=== PATIENT | male | born 1980 | race African-American/Black ===

== ENCOUNTER 2020-03-28 12:57 | Emergency (ER) | payer MEDICAID ==
[~2020-03-28] VITALS: Ht 177.8 cm; Wt 77.1 kg
[2020-03-28 13:02] VITALS: BP 138/101
[2020-03-28] MEDS ORDERED: IBUPROFEN 600 MG TAB PO ONE (13:20)
[2020-03-28] MEDS ORDERED: cefTRIAXone 500 MG in LIDOCAINE MPF 1% 1 ML IM ONE (13:50)
[2020-03-28] MEDS ORDERED: cefTRIAXone 500 MG VIAL ONE (13:53)
[2020-03-28] MEDS ORDERED: LIDOCAINE MPF 1% 5 ML ONE (13:53)
[2020-03-28] MEDS ORDERED: LIDOCAINE MPF 1% 10 MG/ML VIAL INJ STA (14:47)
[2020-03-28 15:09] VITALS: BP 125/95
== END 2020-03-28 15:09 ==
LOC: MED 12:57
DX: S62.392B Other fracture of third metacarpal bone, right hand, initial encounter for open fracture (principal); F17.200 Nicotine dependence, unspecified, uncomplicated; Z02.89 Encounter for other administrative examinations; Y35.813A Legal intervention involving manhandling, suspect injured, initial encounter; Y93.89 Activity, other specified; Y92.89 Other specified places as the place of occurrence of the external cause; Y99.8 Other external cause status
CPT/HCPCS: 29125; 73130; 99283; J2001; Q0092; J0696

== ENCOUNTER 2020-12-25 07:10 | Emergency (ER) | payer MEDICAID ==
[~2020-12-25] VITALS: Ht 175.3 cm; Wt 79.4 kg
[2020-12-25 07:13] VITALS: BP 161/125
--- NOTE | 2020-12-25 07:20 | NUR ---
40 YEAR OLD MALE PRESENTS TO ER FOR PREBOOK WITH CATIA LOPEZ. PT STATES HE HAS HISTORY OF HTN AND WOULD LIKE MEDICAL EXAMINATION BECAUSE IS NOT COMPLIANT WITH MEDICATIONS. NO SYMPTOMS PRESENTPT AOX4, BREATHING EVEN AND UNLABORED, SKIN WARM AND DRY. PMH - HTN ALLERGIES - NKA
[2020-12-25 07:32] VITALS: BP 161/125
--- NOTE | 2020-12-25 07:32 | NUR ---
Patient does not wish to proceed with medical care recommended by Dr. Santo. Patient given information related to possible complications, up to and including , which could occur as a result of leaving hospital at this time. Patient verbalizes understanding of risks involved leaving against medical advice. Patient has signed AMA form. PATIENT BIB [facility] [employer]. PATIENT EXAMINED BY DR. SANTO. PATIENT MEDICALLY CLEARED AND RELEASED IN CUSTODY IN STABLE CONDITION. ORIGINAL PRE-BOOK FORM GIVEN TO OFFICER MANDEEP.
== END 2020-12-25 07:32 | disposition left against medical advice (07) ==
LOC: MED 07:10
DX: I10 Essential (primary) hypertension (principal); Z02.89 Encounter for other administrative examinations
CPT/HCPCS: 99283